=== PATIENT | male | born 1945 | race Caucasian/White ===

== ENCOUNTER 2022-05-29 21:20 | Emergency (ER) | payer MEDICARE, OTHER ==
[~2022-05-29] VITALS: Ht 167.6 cm; Wt 95.3 kg
[2022-05-30 00:33] VITALS: BP 131/74
[2022-05-30] MEDS ORDERED: NAPR-1196 PO (02:04)
[2022-05-30] MEDS ORDERED: KETOROLAC 30MG VIAL (30MG/ML) ONE (02:38)
[2022-05-30] MEDS ORDERED: KETOROLAC 30MG VIAL (30MG/ML) IM ONE (03:00)
== END 2022-05-30 02:50 | disposition home or self-care (01) ==
LOC: EDH 21:20
DX: S70.02XA Contusion of left hip, initial encounter (principal); I48.91 Unspecified atrial fibrillation; E11.9 Type 2 diabetes mellitus without complications; W18.39XA Other fall on same level, initial encounter; Y93.I9 Activity, other involving external motion; Y92.89 Other specified places as the place of occurrence of the external cause; Y99.8 Other external cause status
CPT/HCPCS: 99285; 72192; 96372; J1885